=== PATIENT | female | born 2000 | race Caucasian/White ===

== ENCOUNTER 2025-06-18 13:51 | Emergency (ER) | payer BC ==
[~2025-06-18 13:51] MED LIST: Iopamidol 300 61% 100 ML VIAL FS ONE
[2025-06-18 15:12] LABS: #Basophils 0.07 10x3/uL (0.0-0.2); #Eosinophils 1.74 10x3/uL (0.0-0.5); #Monocytes 0.46 10x3/uL (0.0-1.1); #Neutrophils 5.69 10x3/uL (1.5-8.4); %Basophils 0.7 % (0.0-2.0); %Eosinophils 16.5 % (0.0-6.0); %Lymphocytes 24.2 % (18.0-47.0); %Monocytes 4.4 % (0.0-10.0); %Neutrophils 54.0 % (40.0-75.0); Hematocrit 34.1 % (34.9-44.5); Hemoglobin 11.2 g/dL (12.0-15.5); Mean Corpuscular Hemoglobin 28.9 pg (27.0-33.0); Mean Corpuscular Volume 87.9 fL (81.6-98.3); Platelet Count 303 10x3/uL (150-450); Red Blood Cell (RBC) Count 3.88 10x6/uL (3.90-5.03); White Blood Cell (WBC) Count 10.53 10x3/uL (3.5-10.5)
[2025-06-18 15:39] LABS: ALT (SGPT) 13 U/L (Less than 34); AST (SGOT) 16 U/L (11-34); Albumin 3.6 g/dL (3.1-4.5); Alkaline Phosphatase 79 U/L (40-110); Anion Gap 11 mmol/L (10-20); BUN (Urea Nitrogen) 15 mg/dL (7.0-18.7); Bilirubin, Total 0.1 mg/dL (0.3-1.2); Calc. Creatinine Clearance 0 mL/min (70-130); Calcium 8.3 mg/dL (7.8-10.44); Carbon Dioxide 23 mmol/L (22-29); Chloride 109 mmol/L (98-107); Globulin 3.0 g/dL (2.4-3.5); Glucose 95 mg/dL (70-105); Potassium 3.4 mmol/L (3.5-5.1); Sodium 140 mmol/L (136-145)
[2025-06-18 16:26] LABS: Glucose, Urine (Dipstick) Normal (Negative); Leukocyte 100 (Negative); Protein, Urine (Dipstick) Negative (Neg-Trace); Specific Gravity, Urine 1.015 (1.005-1.030)
[2025-06-18 17:27] LABS: Bacteria/HPF None Seen HPF (None Seen); CAUTI Indications for Culture Pelvic or flank pain; RBC/HPF None Seen HPF (0-3); Urine Culture Reflex No No
== END 2025-06-18 17:44 | disposition home or self-care (01) ==
LOC: CSHERS 13:51
DX: G89.18 Other acute postprocedural pain (principal); R10.9 Unspecified abdominal pain
CPT/HCPCS: 74177; 80053; 81001; 83605; 85025; 96374; 96375; J2272; Q9967